=== PATIENT | male | born 1960 | race African-American/Black ===

== ENCOUNTER 2017-05-02 02:53 | Emergency (ER) | payer BC ==
[2017-05-02 03:02] VITALS: BP 172/85
[2017-05-02] MEDS ORDERED: HYDROCODONE/ACETAMINOPHEN 5-325 MG 6 TAB/DSPK PO PRN (03:37)
--- NOTE | 2017-05-02 03:42 | ER Document Report ---
ED General - General Chief Complaint: Leg Pain Stated Complaint: HEEL/KNEE PAIN Time Seen by Provider: 05/02/17 03:17 Notes: Patient is 57-year-old male who presents with complaint of knee and heel pain. Pain started after this weekend. Patient says he was moving a lot of sound equipment and moving heavy speakers this weekend. He did start having pain just above his left patella and also at his Achilles heel. No fevers. No vomiting. No actual traumatic injury. No other complaints at this time. He does have history of gout but says this feels different. TRAVEL OUTSIDE OF THE [place] IN LAST 30 DAYS: No Past Medical History - Social History Smoking Status: Unknown if Ever Smoked Frequency of alcohol use: None Drug Abuse: None Family History: Reviewed & Not Pertinent Patient has suicidal ideation: No Patient has homicidal ideation: No Renal/ Medical History: Denies: Hx Peritoneal Dialysis Review of Systems - Review of Systems Notes: My Normal Review Basic REVIEW OF SYSTEMS: CONSTITUTIONAL : Denies fever, chills, or sweats. Denies recent illness. MUSCULOSKELETAL: Pain in left knee and left heel. SKIN: Denies rash or skin lesions. NEUROLOGICAL: Denies sensory or motor loss. ALL OTHER SYSTEMS REVIEWED AND NEGATIVE. Physical Exam - Vital signs Vitals: Temp Pulse Resp BP Pulse Ox 98.7 F 84 18 172/85 H 100 05/02/17 03:00 05/02/17 03:00 05/02/17 03:00 05/02/17 03:00 05/02/17 03:00 - Notes Notes: General Appearance: Well nourished, alert, cooperative, no acute distress, moderate obvious discomfort. Vitals: reviewed, See vital signs table. Extremities: strength 5/5 in all extremities, good pulses in all extremities, on patient's left heel he has some redness and swelling at the insertion site of the Achilles tendon into the calcaneus. The remainder of the Achilles tendon is not swollen or inflamed. Patient also has an area of tenderness at the insertion site of the suprapatellar ligament into the patella. There is just minimal swelling located at the insertion site. No redness or warmth to the knee. Patient does have range of motion of the knee. Patient has any pain with palpation of the suprapatellar ligament., no edema. Skin: warm, dry, appropriate color, no rash Neuro: speech clear, oriented x 3, normal affect, responds appropriately to questions. Course - Re-evaluation Re-evalutation: 05/02/17 04:17 Patient's findings are consistent with that of tendinitis. I think gout is less likely being that the only swelling and pain he has is localized to the tendon insertion sites of the Achilles tendon and the suprapatellar ligament. The remainder of the knee is not swollen or edematous. The remainder of the ankle is not swollen or edematous. I will place patient on tapering prednisone. He has a follow-up appointment with the orthopedist this morning. I encouraged him to keep that appointment. Encouraged to return to ER if he has increasing swelling or redness or warmth or fevers. Patient agrees with plan will be discharged home. Dictation of this chart was performed using voice recognition software; therefore, there may be some unintended grammatical errors. - Vital Signs Vital signs: Temp Pulse Resp BP Pulse Ox 98.7 F 84 18 172/85 H 100 05/02/17 03:00 05/02/17 03:00 05/02/17 03:00 05/02/17 03:00 05/02/17 03:00 Discharge - Discharge Clinical Impression: Knee pain, acute Qualifiers: Laterality: left Qualified Code(s): M25.562 - Pain in left knee Heel pain Qualifiers: Laterality: left Qualified Code(s): M79.672 - Pain in left foot Condition: Good Disposition: HOME, SELF-CARE Additional Instructions: Please follow up with Dr. Toledo this am as scheduled. Please return to the ER immediately if you have increased swelling, fevers, or feel that your symptoms are worsening. Prescriptions: Naproxen [Naprosyn 250 mg Tablet] 250 mg PO BID #20 tablet Prednisone 10 mg PO ASDIR #42 tablet Forms: Return to Work
--- NOTE | 2017-05-02 03:50 | RADIOLOGY REPORT (SQ) ---
EXAM DESCRIPTION: KNEE LEFT 4 VIEW COMPLETED DATE/TIME: 05/02/2017 3:34 am REASON FOR STUDY: LEG INJURY COMPARISON: None. NUMBER OF VIEWS: Four views. TECHNIQUE: AP, lateral, and both oblique radiographic images acquired of the left knee. LIMITATIONS: None. FINDINGS: MINERALIZATION: Normal. BONES: No acute fracture or dislocation. Linear cortical thickening along the proximal tibia and fib veena, probably corresponding to enthesophyte formation from the attachment of the soleus muscle. Bony spurs are seen at the patella. JOINT: No effusion. SOFT TISSUES: No soft tissue swelling. No radio-opaque foreign body. IMPRESSION: No radiographic evidence of acute injury. TECHNICAL DOCUMENTATION: JOB ID: [id number] [place]-[id number] 2010 [employer]- All Rights Reserved
--- NOTE | 2017-05-02 03:55 | RADIOLOGY REPORT (SQ) ---
EXAM DESCRIPTION: ANKLE LEFT COMPLETE COMPLETED DATE/TIME: 05/02/2017 3:34 am REASON FOR STUDY: LEG INJURY . Pain posterior aspect of the calcaneus. COMPARISON: None. NUMBER OF VIEWS: Three views. TECHNIQUE: AP, lateral, and oblique radiographic images acquired of the left ankle. LIMITATIONS: None. FINDINGS: MINERALIZATION: Normal. BONES: No acute fracture or dislocation. Bony spurs are seen at the calcaneus. JOINTS: No effusions. SOFT TISSUES: Mild diffuse soft tissue swelling. IMPRESSION: No radiographic evidence of acute injury. Calcaneal spurs. TECHNICAL DOCUMENTATION: JOB ID: [id number] 2010 [employer]- All Rights Reserved
[2017-05-02] MEDS ORDERED: PREDNISONE 20 MG TABLET ONE (04:16)
[2017-05-02] MEDS ORDERED: PREDNISONE 20 MG TABLET PO ONE (04:16)
== END 2017-05-02 04:44 | disposition home or self-care (01) ==
LOC: ER 02:53
DX: M25.562 Pain in left knee (principal); M79.672 Pain in left foot; M79.89 Other specified soft tissue disorders; L53.9 Erythematous condition, unspecified; Z87.39 Personal history of other diseases of the musculoskeletal system and connective tissue
CPT/HCPCS: 99283; 73610; 73562; J7512